=== PATIENT | male | born 1995 | race Caucasian/White ===

== ENCOUNTER 2020-08-17 10:20 | Outpatient (CLI) | payer OTHER | END 2020-08-17 23:59 | disposition home or self-care (01) | LOC: RT 10:20 | PROVIDERS: ATTEND Orthopaedic Surgery | DX: C34.90 Malignant neoplasm of unspecified part of unspecified bronchus or lung (principal); R94.2 Abnormal results of pulmonary function studies | CPT/HCPCS: 94010 ==